=== PATIENT | male | born 1965 | race African-American/Black ===

== ENCOUNTER 2022-05-28 13:43 | Outpatient (CLI) | payer OTHER, SELFPAY ==
--- NOTE | 2022-05-28 13:51 | ECHOD_ITS ---
Reason For Study: NONRHEUMATIC MV REGURGITATION Procedure This was a 2D Doppler, Color Flow transthoracic echocardiogram. The exam was of adequate technical quality. Exam performed in department. Left Ventricle Normal LV size. Apical false tendon noted. Left ventricular systolic function is normal. The estimated ejection fraction is 60 %. Diastolic function is indeterminate. No regional wall motion abnormalities noted. Right Ventricle Normal RV size. Normal systolic function. Atria Normal left atrium. Normal right atrium. No doppler evidence for ASD. Mitral Valve There is no mitral annular calcification. Mild diffuse mitral valve thickening. Equivocal mitral valve prolapse. Mild (1+) eccentric mitral valve insufficiency. Tricuspid Valve Normal tricuspid valve. Moderate (2+) eccentric tricuspid valve insufficiency. Right ventricular systolic pressure estimated to be 36 mmHg. Aortic Valve Trisinus/trileaflet aortic valve. Normal aortic valve. Pulmonic Valve The pulmonic valve is not well visualized. Mild (1+) eccentric pulmonic valve insufficiency. Great Vessels Normal sized aortic root. Pericardium/Pleural No pericardial effusion. MMode/2D Measurements & Calculations LVIDd: 4.4 cm IVSd: 0.84 cm Ao root diam: 3.4 cm LVIDs: 3.1 cm LVPWd: 0.83 cm RVDd: 3.4 cm FS: 28.9 % LAV(MOD-bp): 36.1 ml LVAd ap4: 26.2 cm2 LVAd ap2: 29.7 cm2 LAV(MOD-bp) Indexed: 18.3 ml/m2 LVLd ap4: 8.8 cm LVLd ap2: 8.7 cm LAV(MOD-sp2): 38.1 ml EDV(MOD-sp4): 64.8 ml EDV(MOD-sp2): 88.6 ml LAV(MOD-sp4): 32.5 ml EDV(sp4-el): 66.4 ml EDV(sp2-el): 86.4 ml LVAs ap4: 16.0 cm2 LVAs ap2: 16.7 cm2 LVLs ap4: 7.5 cm LVLs ap2: 7.2 cm ESV(MOD-sp4): 28.9 ml ESV(MOD-sp2): 35.2 ml ESV(sp4-el): 28.9 ml ESV(sp2-el): 33.2 ml EF(MOD-sp4): 55.4 % EF(MOD-sp2): 60.3 % EF(sp4-el): 56.4 % SV(MOD-sp4): 35.9 ml SV(MOD-sp2): 53.4 ml SV(sp4-el): 37.5 ml LA dimension(2D): 3.1 cm LA A4 area: 13.9 cm2 RA A4 area: 13.2 cm2 Doppler Measurements & Calculations MV E max junior: 57.3 cm/sec Lat Peak E' Junior: 8.9 cm/sec Med Peak E' Junior: 10.3 cm/sec MV A max junior: 51.9 cm/sec E/E' lat: 6.5 E/E' med: 5.6 MV E/A: 1.1 Ao V2 max: 106.8 cm/sec LV V1 max: 92.6 cm/sec PA V2 max: 87.1 cm/sec Ao max P.6 mmHg LV V1 max P.4 mmHg Ao V2 mean: 75.2 cm/sec LV V1 mean P.7 mmHg Ao mean P.6 mmHg LV V1 mean: 61.0 cm/sec Ao V2 VTI: 24.3 cm LV V1 VTI: 19.4 cm TR max junior: 285.0 cm/sec TR max P.5 mmHg ECHO/Echo Complete Interpretation Summary Left ventricular systolic function is normal. The estimated ejection fraction is 60 %. Equivocal mitral valve prolapse. Mild diffuse mitral valve thickening. Mild (1+) eccentric mitral valve insufficiency. Moderate (2+) eccentric tricuspid valve insufficiency. Mild (1+) eccentric pulmonic valve insufficiency. Right ventricular systolic pressure estimated to be 36 mmHg. Diastolic function is indeterminate. Ordering Physician: ANDREIA GONZALES Referring Physician: ANDREIA GONZALES Performed By: Clarisa Escobar, RDCS, RVT
== END 2022-05-28 23:59 | disposition home or self-care (01) ==
LOC: CVS 13:49
DX: I34.0 Nonrheumatic mitral (valve) insufficiency (principal)
CPT/HCPCS: 93306

== ENCOUNTER 2023-01-18 08:20 | Day surgery (SDC) | payer OTHER, SELFPAY ==
[2023-01-18] VITALS (7 sets, daily range): BP systolic 96–129; BP diastolic 69–85; PULSE 65–85; RESP 16; TEMP 36.3–36.7; O2SAT 100; BMI 24.3
[2023-01-18] MEDS: Lactated Ringers 1,000 ML 15 ML IV (08:49)
--- NOTE | 2023-01-18 08:54 | HP.PCM_ITS ---
[facility] - General General Date of Admission: 01/18/23 Date of Service: 01/18/23 Chief Complaint: Screening colonoscopy HPI Narrative LINDSAY MARIE, is a 57 M who presents today for screening colonoscopy. He had a colonoscopy back in 2003 for rectal bleeding. That was normal done at time. He has no recent history of lower GI bleeding. He denies abdominal pain. Denies any chest pain or shortness of breath. He denies any weakness. Overall he is in very good health. He has no family history of colon cancer or colon polyps. [facility] Medical History (Updated 01/12/23 @ 15:27 by Kinza Rome) Alcohol use Allergic rhinitis Cardiology follow-up encounter COPD (chronic obstructive pulmonary disease) CPAP (continuous positive airway pressure) dependence Diabetes Elevated alkaline phosphatase level Emphysema, unspecified Essential (primary) hypertension Former smoker History of echocardiogram Hypertension MVP (mitral valve prolapse) Nonrheumatic mitral (valve) prolapse JOVANY on CPAP Prediabetes Wears glasses Home Medications albuterol sulfate 90 mcg/actuation aerosol inhaler (ProAir HFA) 2 puff inhalation Q6H PRN shortness of breath or wheezing 08/21/22 [History Last Taken Unknown] budesonide-formoterol HFA 80 mcg-4.5 mcg/actuation aerosol inhaler (Symbicort) 2 puff inhalation BID 08/21/22 [History Last Taken Unknown] cetirizine 10 mg tablet 10 mg PO DAILY 08/21/22 [History Last Taken Unknown] fluticasone propionate 50 mcg/actuation nasal spray,suspension 1 spray intranasal DAILY 08/21/22 [History Last Taken Unknown] lisinopril 20 mg tablet 20 mg PO DAILY 08/21/22 [History Last Taken 01/18/23] montelukast 10 mg tablet (Singulair) 10 mg PO QHS 08/21/22 [History Last Taken Unknown] multivitamin 1 tab PO DAILY 08/21/22 [History Last Taken Unknown] psyllium husk 0.52 gram capsule 2.6 g PO BID 08/21/22 [History Last Taken Unknown] triamcinolone acetonide 55 mcg nasal spray aerosol (Nasacort) 2 spray intranasal DAILY PRN ALLERGIES 08/21/22 [History Last Taken Unknown] amlodipine 10 mg tablet 10 mg PO DAILY #90 tabs 08/26/22 [Rx Last Taken 01/18/23] berberine-herbal comb no.18 capsule 2 cap PO DAILY 08/26/22 [History Last Taken Unknown] cinnamon bark 500 mg capsule 1,000 mg PO DAILY 08/26/22 [History Last Taken Unknown] Allergy/AdvReac Type Severity Reaction Status Date / Time sulfamethoxazole Allergy Mild muscle Verified 01/18/23 08:45 [From Bactrim] weakness trimethoprim [From Bactrim] Allergy Mild muscle Verified 01/18/23 08:45 weakness hydrocodone [From Vicodin] AdvReac Intermediate Upset Verified 01/18/23 08:45 Stomach morphine AdvReac Intermediate Upset Verified 01/18/23 08:45 Stomach/syncope oxycodone [From Percocet] AdvReac Intermediate Upset Verified 01/18/23 08:45 Stomach Family History Mother Diabetes Brother Hypertension Surgical History (Updated 11/16/22 @ 16:16 by Almaz Bonilla) H/O hernia repair (1963) History of colonoscopy History of liver biopsy Hx of appendectomy (1975) Hx of rotator cuff surgery (06/20/15) Hx of rotator cuff surgery (07/01/17) Social History Smoking Status: Former smoker how long ago did patient quit smokin alcohol intake: current alcohol intake frequency: holidays/special occasions only substance use type: does not use caffeine: Yes Type: coffee Number of servings: 1 ROS Review of Systems ROS Unobtainable: other Constitutional Constitutional: Denies fatigue, fever(s), poor appetite, weight gain or weight loss ENT HEENT: Denies mouth lesions Cardiovascular Cardiovascular: Denies abdominal bloating, abdominal edema or abdominal pain Respiratory/Chest Respiratory/Chest: Denies change in mental status, change in phlegm color, chest congestion or chest tightness Gastrointestinal Gastrointestinal: Denies belching, bloating, change in bowel habits, change in stool character, chewing difficulty, coffee ground emesis, constipation, cramping, diarrhea, dyspepsia, dysphagia, early satiety, excessive flatus, fecal incontinence, heartburn, hematemesis, hematochezia, hemorrhoids, loose stools, melena, nausea, odynophagia, rectal bleeding, tenesmus, vomiting or weight changes Genitourinary Genitourinary: Denies abdominal discomfort, burning urination or itching Musculoskeletal Musculoskeletal: Reports as per HPI; Denies muscle weakness or myalgias Integumentary Integumentary: Denies jaundice Neurologic Neurologic: Denies lack of coordination or weakness Psychiatric Psychiatric: Denies confusion, depression, memory loss, mood swings, paranoia or suicidal ideation Endocrine Endocrinology: Denies systems reviewed and no addt'l complaints, except as documented Hematologic/Lymphatic Hematologic/Lymphatic: Denies anemia, easy bleeding, easy bruising or lymphadenopathy Allergic/Immunologic Allergic/Immunologic: Denies systems reviewed and no addt'l complaints, except as documented Vital Signs Vital Signs Vital Signs: 01/18/23 08:45 01/18/23 08:45 Temperature 98.0 F Temperature Source Temporal Pulse Rate 65 Respiratory Rate 16 Respiratory Pattern Normal Blood Pressure 129/80 H Blood Pressure Mean 96 Blood Pressure Source Monitor Blood Pressure Position Semi-Fowlers Blood Pressure Location Right Arm Pulse Ox 100 Oxygen Delivery Method Room Air Weight Weight: 169 lb 8.568 oz Body Mass Index (BMI) 24.3 Physical Exam Const alert General Appearance: cooperative Orientation / Consciousness: oriented to person HEENT hearing grossly normal bilaterally Head and Scalp: normal to inspection Face and Sinus: face symmetric Nose: external nose normal Mouth: oral and palatal mucosa normal Eyes conjunctivae normal General Eye: normal appearance of both eyes Neck full ROM General: normal visual inspection Lymph Lymphatic: no lymphadenopathy noted Chest inspection of chest normal and palpation of chest normal Chest: symmetrical chest wall rise Resp normal respiratory effort Effort and Inspection: able to speak in complete sentences Cardio regular rate GI non-distended Percussion: normal to percussion Rectal Exam: deferred Neuro Speech: speech normal Gait (Neuro): normal gait Assessment & Plan Assessment/Plan (1) Encounter for screening for malignant neoplasm of colon: PLAN: He will go for screening colonoscopy. He was explained alternatives, risk, benefits including not withstanding bleeding, infection, perforation, need for emergent surgery and . He will have an ASA of 2.
--- NOTE | 2023-01-18 09:49 | OP.CCLET_ITS ---
01/18/2023 Lady Rosenberg Re : Colonoscopy procedure for Felix Henderson Dear Chet This procedure was performed on Wednesday, January 18, 2023. My impressions and recommendations are as follows: Impressions : - Diverticulosis in the recto-sigmoid colon and in the sigmoid colon. - The examination was otherwise normal on direct and retroflexion views. - No specimens collected. Recommendations : - Discharge patient to home. - Resume previous diet. - Continue present medications. - Repeat colonoscopy in 10 years for screening purposes. My findings are described in the full procedure note, which is enclosed. If I can be of further assistance, please feel free to contact me at . Sincerely, Clark Whitley, 01/18/2023 9:48:24 AM This report has been signed electronically.
--- NOTE | 2023-01-18 09:49 | OP.COLON_ITS ---
Patient Name: Felix Henderson Procedure Date: 01/18/2023 9:21 AM Date of : 1965 Age: 57 Procedure: Colonoscopy Indications: Screening for colorectal malignant neoplasm Providers: Clark Whitley DO Referring MD: Clark Whitley DO Medicines: Monitored Anesthesia Care Patient Profile: This is a 57 year old male. Refer to note in patient chart for documentation of history and physical. Last Colonoscopy: more than 10 years ago. Complications: No immediate complications. Procedure: Pre-Anesthesia Assessment: - Prior to the procedure, a History and Physical was performed, and patient medications and allergies were reviewed. The risks and benefits of the procedure and the sedation options and risks were discussed with the patient. All questions were answered and informed consent was obtained. Patient identification and proposed procedure were verified by the physician in the pre-procedure area. Mental Status Examination: alert and oriented. Airway Examination: normal oropharyngeal airway and neck mobility. Respiratory Examination: clear to auscultation. CV Examination: normal. Prophylactic Antibiotics: The patient does not require prophylactic antibiotics. Prior Anticoagulants: The patient has taken no previous anticoagulant or antiplatelet agents. ASA Grade Assessment: II - A patient with mild systemic disease. After reviewing the risks and benefits, the patient was deemed in satisfactory condition to undergo the procedure. The anesthesia plan was to use monitored anesthesia care (MAC). Immediately prior to administration of medications, the patient was re-assessed for adequacy to receive sedatives. The heart rate, respiratory rate, oxygen saturations, blood pressure, adequacy of pulmonary ventilation, and response to care were monitored throughout the procedure. The physical status of the patient was re-assessed after the procedure. After I obtained informed consent, the scope was passed under direct vision. Throughout the procedure, the patient's blood pressure, pulse, and oxygen saturations were monitored continuously. The pediatric colonoscope was introduced through the anus and advanced to the cecum, identified by appendiceal orifice and ileocecal valve. The colonoscopy was performed without difficulty. The patient tolerated the procedure well. The quality of the bowel preparation was good. Scope In: 9:31:28 AM Scope Withdrawal Time 0 hours 8 minutes 7 seconds Scope Out: 9:43:58 AM Total Procedure Duration Time 0 hours 12 minutes 30 seconds Findings: The perianal and digital rectal examinations were normal. A few small-mouthed diverticula were found in the recto-sigmoid colon and sigmoid colon. The exam was otherwise without abnormality on direct and retroflexion views. Impression: - Diverticulosis in the recto-sigmoid colon and in the sigmoid colon. - The examination was otherwise normal on direct and retroflexion views. - No specimens collected. Recommendation: - Discharge patient to home. - Resume previous diet. - Continue present medications. - Repeat colonoscopy in 10 years for screening purposes. Procedure Code(s): --- Professional --- G0121, Colorectal cancer screening; colonoscopy on individual not meeting criteria for high risk CPT copyright 2017 [employer]. All rights reserved. The codes documented in this report are preliminary and upon remote inpatient coder review may be revised to meet current compliance requirements. Clark Whitley DO 01/18/2023 9:48:24 AM This report has been signed electronically. Number of Addenda: 0 Note Initiated On: 01/18/2023 9:21 AM
== END 2023-01-18 10:35 | disposition home or self-care (01) ==
LOC: EN 08:23 → AC 08:24
PROVIDERS: Visit Provider Internal Medicine Gastroenterology
PROC: 0DJD8ZZ Inspection of Lower Intestinal Tract, Via Natural or Artificial Opening Endoscopic (ICD-10-PCS; CPT 45378; principal; 2023-01-18 09:25)
DX: Z12.11 Encounter for screening for malignant neoplasm of colon (principal); J43.9 Emphysema, unspecified; E11.9 Type 2 diabetes mellitus without complications; I10 Essential (primary) hypertension; K57.30 Diverticulosis of large intestine without perforation or abscess without bleeding; Z87.891 Personal history of nicotine dependence; Z79.899 Other long term (current) drug therapy
CPT/HCPCS: 45378; J7120; J2405

== ENCOUNTER → 2023-07-13 | Outpatient (CLI) | payer OTHER, SELFPAY ==
--- NOTE | 2023-07-13 10:50 | STRESSREP_ITS ---
Stress Test Report Exercise myocardial perfusion stress test. 58-year-old man with a history of hypertension Stress protocol: Resting EKG demonstrates normal sinus rhythm with a rate of 62 bpm resting blood pressure is 130/74 mmHg. The patient exercised according to the regular Josiah protocol for a total duration of 8 minutes and 30 seconds attaining a maximum heart rate of 157 bpm which was 97% of maximum predicted heart rate; the maximum workload was 10.1 metabolic equivalents. At rest there were no ST or T wave changes noted to suggest ischemia and at peak exercise upsloping ST changes only were noted which did not meet the criteria for ischemia. No clinical angina was noted the test was terminated due to the target heart rate being achieved/fat igue. The peak blood pressure was 160/70 mmHg. Rate-pressure product was 25,100. Myocardial perfusion protocol. 12.0 mCi of technetium 99m sestamibi was injected at rest. The patient exercised according to regular Josiah protocol for total duration of 8 minutes and 30 seconds and at peak exercise 35.7 mCi of technetium 99m sestamibi was injected stress images were obtained stress and rest images were reconstructed in comparing the short axis vertical long and horizontal long axis. Gated images were also obtained. Perfusion SPECT analysis: Review of the stress images demonstrate normal uptake of tracer noted in all areas of the myocardium. The resting images similarly demonstrate normal uptake of tracer noted in all areas of the myocardium. No areas of reversibility are noted to suggest ischemia no previous infarct was noted. Gated SPECT analysis: The gated ejection fraction is 57%. Conclusion: Normal exercise myocardial perfusion stress test at a high workload Preserved ejection fraction.
== END | disposition home or self-care (01) ==
LOC: CVS 06:57
PROVIDERS: Referring Provider Physician Assistant Medical; Visit Provider Physician Assistant Medical
DX: R07.9 Chest pain, unspecified (principal); J44.9 Chronic obstructive pulmonary disease, unspecified; R73.03 Prediabetes; I10 Essential (primary) hypertension; G47.33 Obstructive sleep apnea (adult) (pediatric); Z99.89 Dependence on other enabling machines and devices
CPT/HCPCS: 78452; 93017; A9500; A4216